=== PATIENT | male | born 1995 | race Caucasian/White ===

== ENCOUNTER 2017-08-27 01:54 | Emergency (ER) | payer OTHER, MEDICAID ==
[2017-08-27] MEDS ORDERED: Ondansetron INJ* 2 MG/ML VIAL IV ONE (01:57)
[2017-08-27] MEDS ORDERED: NS 0.9% 1000 ML* 2,000 ML IV ONE (01:58)
[2017-08-27 03:32] LABS: Hematocrit 47 % (42-52); Hemoglobin 15.6 g/dl (14.0-18.0); Mean Corpuscular HGB Conc 33 g/dl (31-36); Mean Corpuscular Hemoglobin 29 pg (27-31); Mean Corpuscular Volume 87 fL (80-94); Mean Platelet Volume 9 um3 (7.4-10.4); Red Blood Count 5.41 10^6/ul (4.0-5.4); Red Cell Distribution Width 13 % (10.5-15); White Blood Count 12.9 10^3/ul (3.5-10.8)
[2017-08-27 03:42] LABS: Acetaminophen < 15 mcg/mL; Alcohol 216 mg/dL (<10); Salicylate < 2.50 mg/dL (<30)
[2017-08-27 03:44] LABS: ALT 29 U/L (7-52); AST 23 U/L (13-39); Albumin 4.4 g/dL (3.2-5.2); Alkaline Phosphatase 45 U/L (34-104); Anion Gap 12 mmol/L (2-11); BUN/Creatinine Ratio 12.2 (8-20); Blood Urea Nitrogen 14 mg/dL (6-24); CO2 Carbon Dioxide 21 mmol/L (22-32); Calcium 9.3 mg/dL (8.6-10.3); Chloride 107 mmol/L (101-111); Creatine Kinase 237 U/L (10-223); EGFR African American 103.2 (>60); EGFR Non-African American 80.3 (>60); Glucose 136 mg/dL (70-100); Potassium 3.7 mmol/L (3.5-5.0); Sodium 140 mmol/L (133-145); Total Protein 7.4 g/dL (6.4-8.9)
[2017-08-27 06:07] VITALS: BP 112/60
--- NOTE | 2017-08-27 10:04 | ED ---
Lynn Mon Thomas, scribed for Kami Sanchez MD on 08/27/17 at 0229 . Substance Abuse/Use - HPI Summary HPI Summary: The pt is an 21 y/o M BIBA after he was found alone and intoxicated on a couch on a porch. He is a student at [employer]. Per EMS a bystander called EMS and could not provide additional hx. LEVEL 5 CAVEAT: HPI LIMITED BY INTOXICATED PATIENT - History Of Current Complaint Chief Complaint: EDSubstanceAbuse Stated Complaint: ALCOHOL CONSUMPTION Time Seen by Provider: 08/27/17 01:57 Hx Obtained From: Patient Hx From Patient Unobtainable Due To: Altered Mental Status Ingestion History: Type/Name Of Drug - EOTH Overdose Characteristics: Oral Severity Initially: Moderate Severity Currently: Severe Character: Other - intoxicated, vomiting, sleepy Aggravating Factor(s): Nothing Alleviating Factor(s): Nothing Associated Signs And Symptoms: Vomiting PMH/Surg Hx/FS Hx/Imm Hx Previously Healthy: No - LEVEL 5 CAVEAT: PMH LIMITED BY INTOXICATED PATIENT Infectious Disease History: Unable to Obtain/Confirm Infectious Disease History: Denies: Traveled Outside the [place] in Last 30 Days - Family History Known Family History: Positive: Other - unable to obtain, level 5 caveat - Social History Occupation: Student Lives: Dormitory/Roommates Alcohol Use: unknown usual amount, admits ETOH tonight Substance Use Type: Reports: None Smoking Status (MU): Unknown if Ever Smoked Review of Systems - ROS Summary Review of Systems Summary: LEVEL 5 CAVEAT: ROS LIMITED BY INTOXICATED PATIENT Negative: Fever Positive: Vomiting Neurological: Other - Intoxication d/t ETOH All Other Systems Reviewed And Are Negative: No Physical Exam - Summary Physical Exam Summary: LEVEL 5 CAVEAT: PHYSICAL EXAM LIMITED BY INTOXICATED PATIENT Triage Information Reviewed: Yes Vital Signs On Initial Exam: Initial Vitals Temp Pulse Resp BP Pulse Ox 97.8 F 92 16 135/77 97 08/27/17 02:00 08/27/17 02:00 08/27/17 02:00 08/27/17 02:00 08/27/17 02:00 Vital Signs Reviewed: Yes Appearance: Positive: Well-Appearing - no signs of trauma, vomiting on arrival, undigested food, no blood or coffee grounds, No Pain Distress, Well-Nourished Skin: Positive: Warm, Skin Color Reflects Adequate Perfusion Head/Face: Positive: Normal Head/Face Inspection Eyes: Positive: Conjunctiva Clear ENT: Positive: Normal ENT inspection Neck: Positive: Supple, Nontender, No Lymphadenopathy Respiratory/Lung Sounds: Positive: Clear to Auscultation, Breath Sounds Present , Other - No respiratory distress Cardiovascular: Positive: RRR, Pulses are Symmetrical in both Upper and Lower Extremities, Other - Brisk cap refill. Negative: Murmur Abdomen Description: Positive: Nontender, No Organomegaly, Soft Bowel Sounds: Positive: Present Musculoskeletal: Positive: Strength/ROM Intact Neurological: Positive: Sensory/Motor Intact, Disoriented - oriented to person and place, not time, Slurred Speech, Facial Symmetry, Other - no focal deficit noted Psychiatric: Positive: Normal - Brandt Coma Scale Best Eye Response: 4 - Spontaneous Best Motor Response: 6 - Obeys Commands Best Verbal Response: 4 - Confused Diagnostics - Vital Signs Vital Signs Temp Pulse Resp BP Pulse Ox 08/27/17 02:00 97.8 F 92 16 135/77 97 - Laboratory Lab Results: Lab Results 08/27/17 08/27/17 08/27/17 Range/Units 02:09 02:09 02:09 WBC 12.9 H (3.5-10.8) 10^3/ul RBC 5.41 H (4.0-5.4) 10^6/ul Hgb 15.6 (14.0-18.0) g/dl Hct 47 (42-52) % MCV 87 (80-94) fL MCH 29 (27-31) pg MCHC 33 (31-36) g/dl RDW 13 (10.5-15) % Plt Count 236 (150-450) 10^3/ul MPV 9 (7.4-10.4) um3 Neut % (Auto) 63.7 (38-83) % Lymph % (Auto) 27.1 (25-47) % Jefferson % (Auto) 7.4 (1-9) % Eos % (Auto) 1.5 (0-6) % Baso % (Auto) 0.3 (0-2) % Absolute Neuts (auto) 8.2 H (1.5-7.7) 10^3/ul Absolute Lymphs (auto) 3.5 (1.0-4.8) 10^3/ul Absolute Monos (auto) 1.0 H (0-0.8) 10^3/ul Absolute Eos (auto) 0.2 (0-0.6) 10^3/ul Absolute Basos (auto) 0 (0-0.2) 10^3/ul Absolute Nucleated RBC 0.01 10^3/ul Nucleated RBC % 0.1 Sodium 140 (133-145) mmol/L Potassium 3.7 (3.5-5.0) mmol/L Chloride 107 (101-111) mmol/L Carbon Dioxide 21 L (22-32) mmol/L Anion Gap 12 H (2-11) mmol/L BUN 14 (6-24) mg/dL Creatinine 1.15 (0.67-1.17) mg/dL Est GFR ( Amer) 103.2 (>60) Est GFR (Non-Af Amer) 80.3 (>60) BUN/Creatinine Ratio 12.2 (8-20) Glucose 136 H (70-100) mg/dL Lactic Acid 2.2 H* (0.5-2.0) mmol/L Calcium 9.3 (8.6-10.3) mg/dL Total Bilirubin 0.20 (0.2-1.0) mg/dL AST 23 (13-39) U/L ALT 29 (7-52) U/L Alkaline Phosphatase 45 (34-104) U/L Total Creatine Kinase 237 H (10-223) U/L Total Protein 7.4 (6.4-8.9) g/dL Albumin 4.4 (3.2-5.2) g/dL Globulin 3.0 (2-4) g/dL Albumin/Globulin Ratio 1.5 (1-3) Salicylates < 2.50 (<30) mg/dL Acetaminophen < 15 mcg/mL Serum Alcohol 216 H (<10) mg/dL Result Diagrams: 08/27/17 02:09 08/27/17 02:09 Lab Statement: Any lab studies that have been ordered have been reviewed, and results considered in the medical decision making process. Course/Dx - Course Assessment/Plan: The pt is an 21 y/o M BIBA after he was found alone and intoxicated on a couch. He is a student at [employer]. At re-evaluation at 05:21, the patient is still sleeping. Bloodwork obtained, showing WBC 12.9 and serum alcohol 216. The patient is signed out to Dr. Montoya at shift change pending ETOH metabolism and awaiting discharge. - Diagnoses Differential Diagnosis/HQI/PQRI: Positive: Alcohol Abuse, Metabolic Disorder Provider Diagnoses: Acute alcohol intoxication Discharge - Discharge Plan Condition: Stable Disposition: HOME Patient Education Materials: Alcohol Intoxication (ED) [facility] [Primary Care Provider] - The documentation as recorded by the Lynn garza Thomas accurately reflects the service I personally performed and the decisions made by Daniel mao Barbara J, MD.
--- NOTE | 2017-08-27 13:06 | CONSULT ---
Consult Consult: Mr. Lucero woke up, was clinically sober and found a sober ride home. He was D/ C'd in stable condition with a diagnosis of alcohol intoxication
== END 2017-08-27 08:46 | disposition home or self-care (01) ==
LOC: ED 01:54
DX: F10.129 Alcohol abuse with intoxication, unspecified (principal); Y90.7 Blood alcohol level of 200-239 mg/100 ml
CPT/HCPCS: 36415; 80053; 80320; 80329; 82550; 83605; 85025; 96360; 96374; 99284; G0480; J2405